=== PATIENT | male | born 1965 | race Hispanic/Latino ===

== ENCOUNTER 2017-10-10 22:45 | Emergency (ER) | payer BC, SELFPAY ==
[2017-10-10] MEDS ORDERED: ONDANSETRON 4 MG/2 ML VIAL ONE (22:47)
[2017-10-10] MEDS ORDERED: MEPERIDINE HCL 25 MG/0.5 ML ONE (22:47)
[2017-10-10] MEDS ORDERED: TETANUS & DIPHTHERIA TOX,ADULT 0.5 ML VIAL ONE (22:48)
[2017-10-10 23:28] LABS: Absolute Lymphocytes (CBC) 1.3 K/uL (0.7-4.9); Absolute Monocytes 0.8 K/uL (0.1-1.3); Absolute Neutrophil 8.9 K/uL (1.8-8.0); Basophils % 0.8 % (0-1.3); Eosinophils % 0.7 % (0-4.4); Hematocrit 52.2 % (39.6-49.0); Lymphocytes % 11.6 % (15.3-44.8); MCH 29.6 pg (27.0-35.0); MCV 90.3 fL (80-100); MPV 8.9 fL (7.6-11.3); Monocytes % 6.8 % (3.3-12.3); RBC Red Blood Cell Count 5.79 M/uL (4.33-5.43)
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
[2017-10-11 03:29] LABS: Urine Blood NEGATIVE (NEG); Urine Glucose NEGATIVE (NEG); Urine Protein NEGATIVE (NEG); Urine Specific Gravity 1.015 (1.005-1.030); Urine pH 5.5 (5.0-7.0)
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
== END 2017-10-11 01:52 | disposition short-term general hospital (02) ==
LOC: ER 22:45
DX: S02.402A Zygomatic fracture, unspecified side, initial encounter for closed fracture (principal); V29.9XXA Motorcycle rider (driver) (passenger) injured in unspecified traffic accident, initial encounter; Z72.0 Tobacco use; Z23 Encounter for immunization
CPT/HCPCS: 36415; 70450; 71045; 71260; 72125; 74177; 80048; 81003; 85025; 86850; 86900; 86901; 90714; 96374; 96375; 99285; J2175; J2405; Q9967